=== PATIENT | female | born 1990 | race Caucasian/White ===

== ENCOUNTER 2017-03-16 03:30 | Emergency (ER) | payer MEDICAID ==
[~2017-03-16] VITALS: Ht 157.5 cm; Wt 59.1 kg
[2017-03-16] MEDS ORDERED: ONDANSETRON HCL 4 MG TABLET PO ONE (04:00)
[2017-03-16 04:41] LABS: APPEARANCE,URINE CLOUDY (CLEAR); BILIRUBIN,URINE NEGATIVE (NEGATIVE); GLUCOSE, URINE (UA) NEGATIVE (NEGATIVE); KETONES,URINE 40 mg/dL (NEGATIVE); LEUKOCYTE ESTERASE ,URINE NEGATIVE (NEGATIVE); NITRATE,URINE NEGATIVE (NEGATIVE); OCCULT BLOOD,URINE NEGATIVE (NEGATIVE); PH,URINE 5.5 (5.0-8.0); PROTEIN,URINE NEGATIVE (NEGATIVE); UROBILINOGEN,URINE 0.2 mg/dL (<=1.0)
[2017-03-16 05:01] LABS: MUCUS,URINE Moderate LPF (None Seen); SQUAMOUS EPITHELIAL CELL,UR Moderate /LPF (None Seen)
[2017-03-16 05:02] LABS: BACTERIA,URINE Moderate /HPF (None Seen); RBC,URINE 0-2 /HPF (0-2); WBC,URINE 0-2 /HPF (0-5)
[2017-03-16 05:12] VITALS: BP 124/71
== END 2017-03-16 05:31 | disposition home or self-care (01) ==
LOC: EMS 03:32
DX: R10.84 Generalized abdominal pain (principal); R11.0 Nausea; R06.02 Shortness of breath; R07.89 Other chest pain
CPT/HCPCS: 71020; 81001; 81025; 87086; 93005; 99285; Q0162